=== PATIENT | male | born 1985 ===

== ENCOUNTER 2017-10-26 21:41 | Emergency (ER) | payer MEDICAID ==
[2017-10-26] MEDS ORDERED: Clotrimazole 1% Cream 15 GM TUBE TOP STA (23:23)
--- NOTE | 2017-10-27 00:25 | C.PDOC ---
History Of Present Illness 32 y/o homeless male presents to ER with c/o of bilateral leg swelling and foot pain. 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 Pt denies trauma, SOB, recent prolonged travel, recent immobility state, fever Time Seen by Provider: 10/26/17 22:07 Chief Complaint (Nursing): Lower Extremity Problem/Injury History/Exam Limitations: no limitations Onset/Duration Of Symptoms: Gradual (1 week) Current Symptoms Are (Timing): Still Present Severity: Moderate - Ankle/Foot Description Of Injury: Struck Against Object (kicked against brick object at work). denies: Fell Past Medical History Vital Signs: Last Vital Signs Temp 97.5 F L 10/27/17 00:44 Pulse 80 10/27/17 00:44 Resp 14 10/27/17 00:44 BP 120/80 10/27/17 00:44 Pulse Ox 99 10/27/17 00:44 Family History: States: Unknown Family Hx - Social History Hx Alcohol Use: Yes Hx Substance Use: Yes (HEROIN) - Immunization History Hx Tetanus Toxoid Vaccination: No Hx Influenza Vaccination: No Hx Pneumococcal Vaccination: No Review Of Systems Constitutional: Negative for: Fever Cardiovascular: Negative for: Chest Pain, Palpitations Respiratory: Negative for: Cough, Shortness of Breath Musculoskeletal: Positive for: Leg Pain (b/l ankle and foot) Neurological: Negative for: Weakness, Numbness Physical Exam - Physical Exam Appears: Non-toxic, No Acute Distress Skin: Normal Color Head: Atraumatic Eye(s): bilateral: Normal Inspection, PERRL Respiratory: Normal Breath Sounds, No Rales, No Rhonchi, No Wheezing Extremity: Normal ROM, Tenderness (b/l ankles), Pedal Edema, No Calf Tenderness , Capillary Refill (< 2sec), No Deformity, No Swelling, Other (maceration between all toes and calluses to base of b/l plantar aspects of foot with 1- clean and pink pessure point ulcer, no fluctuant mass) Extremity: Bilateral: Atraumatic, Normal Color And Temperature Pulses: Left Dorsalis Pedis: Normal, Right Dorsalis Pedis: Normal Neurological/Psych: Oriented x3, Normal Motor, Normal Sensation Gait: Steady ED Course And Treatment O2 Sat by Pulse Oximetry: 100 Progress Note: Pt was given saline and betadine solution and lotrinmin cream applied to toes and clean socks given. Remainder of oint given to pt to reapply. . Pt understands he'll follow up in clinic, instructions were given Reassessment Condition: Improved Disposition Counseled Patient/Family Regarding: Diagnosis - Disposition Referrals: [facility] [Outside] [facility] [Outside] Disposition: HOME/ ROUTINE Disposition Time: 00:25 Condition: STABLE Additional Instructions: Leg elevation Soak fert Apply antifungal cream Return to ER if worse Prescriptions: Clotrimazole 1% Cream [Lotrimin 1%] 1 appl TP BID #60 g Instructions: Dependent Edema (DC), Athlete's Foot (DC) Forms: [employer] (Greek) - Clinical Impression Clinical Impression: Bilateral leg edema, Tinea pedis
[2017-10-27 00:45] VITALS: BP 120/80; PULSE 80; RESP 14; TEMP 97.5
[2017-10-27 03:13] VITALS: O2SAT 100
== END 2017-10-27 00:45 | disposition home or self-care (01) ==
LOC: C.ER 21:41
DX: B35.3 Tinea pedis (principal); R60.0 Localized edema; Z59.0 Homelessness